=== PATIENT | female | born 1975 | race Caucasian/White ===

== ENCOUNTER 2017-04-26 10:42 | Emergency (ER) | payer MEDICAID ==
[~2017-04-26] VITALS: Ht 157.5 cm; Wt 81.6 kg
[2017-04-26 10:42] VITALS: BP_SYST 150
[~2017-04-26 10:42] MED LIST: HYDR25TA4 PO; LORA1TAB PO; MECL-97 PO; ONDA4TAB22 PO; PRAV10TA37 PO; SCOP1PAT TD
[2017-04-26] MEDS ORDERED: LORazepam 2 MG/ML VIAL (FOR ER USE) IVP ONE (11:15)
[2017-04-26 11:22] LABS: BASOPHILS # (AUTO) 0.1 K/uL (0.0-0.2); BASOPHILS % (AUTO) 0.6 % (0.0-2.0); EOSINOPHILS # (AUTO) 0.2 K/uL (0.0-0.4); EOSINOPHILS % (AUTO) 1.6 % (0.0-4.0); HEMATOCRIT 42.9 % (36-48); LYMPHOCYTES # (AUTO) 3.4 K/uL (1.0-5.5); LYMPHOCYTES % (AUTO) 29.2 % (20.5-51.5); MEAN CORPUSCULAR HEMOGLOBIN 28 pg (27-31); MEAN CORPUSCULAR HGB CONC 33 % (32-36); MEAN CORPUSCULAR VOLUME 85 fL (79.0-98.0); MONOCYTES # (AUTO) 0.5 K/uL (0.0-1.0); MONOCYTES % (AUTO) 4.3 % (1.7-9.3); NEUTROPHILS # (AUTO) 7.5 K/uL (1.8-7.7); NEUTROPHILS % (AUTO) 64.3 % (40.0-70.0); PLATELET COUNT (AUTO) 234 K/uL (130-430); RED BLOOD CELL COUNT(AUTO) 5.02 MIL/uL (4.2-6.2); RED CELL DISTRIBUTION WIDTH 13.9 % (9.0-15.0); WHITE BLOOD COUNT (AUTO) 11.7 K/uL (4.8-10.8)
[2017-04-26 11:34] LABS: PROTHROMBIN TIME 9.9 SECS (9.5-12.5)
[2017-04-26 11:45] LABS: ALBUMIN 3.6 g/dL (3.4-4.8); CALCIUM 9.5 mg/dL (8.4-11.0); CREATININE 0.6 mg/dL (0.55-1.30); POTASSIUM 3.3 mmol/L (3.5-5.1); TOTAL BILIRUBIN 0.3 mg/dL (0.0-1.0)
[2017-04-26] MEDS ORDERED: ONDANSETRON HCL 4 MG/2 ML VIAL IVP ONE (12:00)
[2017-04-26] MEDS ORDERED: DIPHENHYDRAMINE INJ 50 MG/ML VIAL IVP ONE (12:00)
[2017-04-26] MEDS ORDERED: POTASSIUM CHLORIDE 20 MEQ TAB.PRT.SR PO ONE (12:00)
[2017-04-26] MEDS ORDERED: ONDANSETRON HCL 4 MG/2 ML VIAL ONE (12:13)
[2017-04-26] MEDS ORDERED: DIPHENHYDRAMINE INJ 50 MG/ML VIAL ONE (12:13)
[2017-04-26 13:39] VITALS: BP_SYST 137
== END 2017-04-26 13:38 | disposition home or self-care (01) ==
LOC: SED 10:42
DX: R42 Dizziness and giddiness (principal); J45.909 Unspecified asthma, uncomplicated; I10 Essential (primary) hypertension; E78.00 Pure hypercholesterolemia, unspecified
CPT/HCPCS: 36415; 80053; 83880; 84484; 85025; 85610; 93005; 96374; 96375; 99285; J1200; J2060; J2405